=== PATIENT | female | born 1955 | race African-American/Black ===

== ENCOUNTER 2020-11-16 05:32 | Inpatient (IN) ==
[2020-11-10 11:20] LABS: Basophils % 0.5 % (0.0-0.8); Eosinophils % 0.5 % (0.00-10.9); Hematocrit 41.6 VOL% (35.7-47.0); Hemoglobin 13.7 GM/DL (12.0-16.0); Immature Granulocytes % 0.6 %; Immature Granulocytes Absolute 0.05 #; Lymphocytes # 2.9 10*3/uL (1.4-4.0); Lymphocytes % 35.4 % (21.3-54.2); Mean Corpuscular HGB Conc 32.9 GM/DL (32-36); Mean Corpuscular Volume 82.5 FL (87-102); Mean Platelet Volume 11.7 FL (9.6-12.0); Monocytes % 5.8 % (1.7-12.7); Neutrophils % 57.2 % (38.7-73.9); Platelet Count 209 T/CUMM (130-400); Red Blood Count 5.04 MC/CUMM (3.8-5.5); Red Cell Distribution Width 16.3 % (9.3-17.3); White Blood Count 8.1 T/CUMM (4-12)
[2020-11-10 11:23] LABS: Bilirubin,Urine Negative (Negative); Blood, Urine Small mg/dL (Negative); Glucose,Urine (UA) Negative (Negative); Ketones,Urine Negative (Negative); Mucus,Urine Occasional /LPF (Occasional); Nitrite,Urine Negative (Negative); Protein,Urine Negative; RBC,Urine 1 /HPF (0-4); Squamous Epithelial Cell,Urine Occasional /HPF (0-10); Urine Appearance CLEAR (Clear); Urine Color Yellow (Yellow); Urine Specific Gravity 1.013 (1.001-1.035); Urine Urobilinogen < 2.0 EU/DL (0.2-1.0); WBC,Urine 1 /HPF (0-6)
[2020-11-10 11:30] LABS: PT Patient Result 10.9 SECS (9.8-11.9); Partial Thromboplastin Time 30.2 SECS (23.9-33.8)
[2020-11-10 11:39] LABS: Albumin 3.6 G/DL (3.4-5.0); Bilirubin,Total 0.5 MG/DL (0.2-1.0); Calcium 9.4 MG/DL (8.5-10.1); Osmolality,Calculated 275.7 MOS/KG (273-304); Total Protein 7.9 G/DL (6.4-8.3)
[2020-11-10 12:21] LABS: Band Neutrophils 6 % (0-10); Lymphocytes 32 % (20-55); Platelet Estimate Normal; Segmented Neutrophils 58 % (50-85); Total Cells Counted 100
[2020-11-10 12:22] LABS: Anisocytosis Slight
[2020-11-16] MEDS ORDERED: ceFAZolin 1,000 MG in SYRINGE 1 EACH IV ONE (06:00)
[2020-11-16] MEDS ORDERED: VANCOMYCIN INJ 1,000 MG in SODIUM CHLORIDE 0.9% 250 ML IV ONE (06:00)
[2020-11-16] MEDS ORDERED: fentaNYL 100 MCG/2 ML VIAL ONE (06:26)
[2020-11-16] MEDS ORDERED: MIDAZOLAM 2 MG/2 ML VIAL ONE (06:27)
[2020-11-16] MEDS ORDERED: BUPIVACAINE MPF 0.25% 30 ML VIAL ONE (06:30)
[2020-11-16] MEDS ORDERED: LIDOCAINE 1% 5 ML VIAL ONE (06:31)
[2020-11-16] MEDS ORDERED: BACITRACIN OINT 0.9 GM PACK TOP ONE (06:35)
[2020-11-16] MEDS ORDERED: GABAPENTIN 400 MG CAPSULE PO ONE (06:39)
[2020-11-16] MEDS ORDERED: ACETAMINOPHEN 500 MG TABLET PO ONE (06:39)
[2020-11-16] MEDS ORDERED: FAMOTIDINE 20 MG TABLET PO ONE (06:39)
[2020-11-16] MEDS ORDERED: LIDOCAINE 2% 5 ML VIAL ONE (06:49)
[2020-11-16] MEDS ORDERED: propofoL 200 MG/20 ML VIAL IV ONE ×2 (06:49→07:21)
[2020-11-16] MEDS ORDERED: LACTATED RINGERS 1,000 ML IV SCH (07:00)
[2020-11-16] MEDS ORDERED: BUPIVACAINE SPINAL 0.75% 2 ML AMP SPINAL ONE (07:06)
[2020-11-16] MEDS ORDERED: traZODone 50 MG TABLET PO PRN (07:26)
[2020-11-16] MEDS ORDERED: NITROGLYCERIN SL 0.4 MG TABLET SL PRN (07:26)
[2020-11-16] MEDS ORDERED: GABAPENTIN 300 MG CAPSULE PO PRN (07:26)
[2020-11-16] MEDS ORDERED: ONDANSETRON 4 MG/2 ML VIAL IV PRN (07:35)
[2020-11-16] MEDS ORDERED: MORPHINE 4 MG/1 ML VIAL IV PRN (07:35)
[2020-11-16] MEDS ORDERED: MAGNESIUM HYDROXIDE SUSP 30 ML UDCUP PO PRN (07:35)
[2020-11-16] MEDS ORDERED: SODIUM CHLORIDE 0.9% 250 ML IV ONE (07:44)
[2020-11-16] MEDS ORDERED: KETAMINE 500 MG/10 ML VIAL ONE (07:48)
[2020-11-16] MEDS ORDERED: SODIUM CHLORIDE 0.9% 100 ML IV ONE (07:54)
[2020-11-16] MEDS ORDERED: LACTATED RINGERS 1,000 ML IV ONE (07:54)
[2020-11-16] MEDS ORDERED: TRANEXAMIC ACID 1,000 MG/10 ML VIAL ONE (07:54)
[2020-11-16] MEDS ORDERED: PHENYLEPHRINE 1 MG/10 ML SYRINGE IV ONE (08:07)
[2020-11-16] MEDS ORDERED: ePHEDrine 50 MG/ML VIAL ONE (08:39)
[2020-11-16 09:09] LABS: Bacteria,Urine Occasional /HPF (Few); Bilirubin,Urine Negative (Negative); Blood, Urine Moderate mg/dL (Negative); Glucose,Urine (UA) Negative (Negative); Ketones,Urine Negative (Negative); Mucus,Urine Occasional /LPF (Occasional); Nitrite,Urine Negative (Negative); Protein,Urine Negative; RBC,Urine 1 /HPF (0-4); Squamous Epithelial Cell,Urine Occasional /HPF (0-10); Urine Appearance CLEAR (Clear); Urine Color Yellow (Yellow); Urine Specific Gravity 1.015 (1.001-1.035); Urine Urobilinogen < 2.0 EU/DL (0.2-1.0); WBC,Urine <1 /HPF (0-6)
[2020-11-16] MEDS: LACTATED RINGERS 1,000 ML IV SCH ×4 (09:45→23:30)
[2020-11-16] MEDS: KETOROLAC 30 MG/1 ML VIAL IV SCH ×3 (10:57→23:28)
[2020-11-16] MEDS: ceFAZolin 2,000 MG in PREMIX 1 EACH IV SCH ×2 (10:58→20:51)
[2020-11-16] MEDS: MORPHINE 4 MG/1 ML VIAL IV PRN ×2 (17:30→21:59)
[2020-11-16] MEDS: SERTRALINE 50 MG TABLET PO SCH (20:36)
[2020-11-16] MEDS: PANTOPRAZOLE 40 MG TABLET PO SCH (20:36)
[2020-11-16] MEDS: DOCUSATE SODIUM 100 MG CAPSULE PO SCH (20:36)
[2020-11-16] MEDS: APIXABAN 2.5 MG TABLET PO SCH (20:37)
[2020-11-17 05:31] LABS: Basophils % 0.3 % (0.0-0.8); Eosinophils % 0.6 % (0.00-10.9); Hematocrit 28.7 VOL% (35.7-47.0); Hemoglobin 9.4 GM/DL (12.0-16.0); Immature Granulocytes % 0.7 %; Immature Granulocytes Absolute 0.05 #; Lymphocytes # 1.7 10*3/uL (1.4-4.0); Mean Corpuscular HGB Conc 32.8 GM/DL (32-36); Mean Corpuscular Volume 82.5 FL (87-102); Mean Platelet Volume 11.1 FL (9.6-12.0); Monocytes % 10.1 % (1.7-12.7); Neutrophils % 65.3 % (38.7-73.9); Platelet Count 166 T/CUMM (130-400); Red Blood Count 3.48 MC/CUMM (3.8-5.5); Red Cell Distribution Width 16.4 % (9.3-17.3); White Blood Count 7.3 T/CUMM (4-12)
[2020-11-17] MEDS ORDERED: KETOROLAC 30 MG/1 ML VIAL IV SCH (06:00)
[2020-11-17 06:05] LABS: Calcium 7.9 MG/DL (8.5-10.1); Osmolality,Calculated 283.1 MOS/KG (273-304)
[2020-11-17] MEDS: KETOROLAC 30 MG/1 ML VIAL IV SCH (06:16)
[2020-11-17] MEDS: ATORVASTATIN 40 MG TABLET PO SCH (08:38)
[2020-11-17] MEDS: CHOLECALCIFEROL 1,000 UNIT TABLET PO SCH (08:38)
[2020-11-17] MEDS: APIXABAN 2.5 MG TABLET PO SCH ×2 (08:39→21:37)
[2020-11-17] MEDS: DOCUSATE SODIUM 100 MG CAPSULE PO SCH ×2 (08:39→21:37)
[2020-11-17] MEDS: ASPIRIN EC 81 MG TABLET PO SCH (08:39)
[2020-11-17] MEDS: SERTRALINE 50 MG TABLET PO SCH (21:37)
[2020-11-17] MEDS: MORPHINE 4 MG/1 ML VIAL IV PRN (21:38)
[2020-11-17] MEDS: PANTOPRAZOLE 40 MG TABLET PO SCH (21:40)
[2020-11-18 05:20] LABS: Basophils % 0.3 % (0.0-0.8); Eosinophils % 0.5 % (0.00-10.9); Hematocrit 29.1 VOL% (35.7-47.0); Hemoglobin 9.6 GM/DL (12.0-16.0); Immature Granulocytes % 0.8 %; Immature Granulocytes Absolute 0.06 #; Lymphocytes # 1.5 10*3/uL (1.4-4.0); Lymphocytes % 18.4 % (21.3-54.2); Mean Corpuscular Volume 82.7 FL (87-102); Mean Platelet Volume 11.2 FL (9.6-12.0); Monocytes % 7.3 % (1.7-12.7); Neutrophils % 72.7 % (38.7-73.9); Platelet Count 170 T/CUMM (130-400); Red Blood Count 3.52 MC/CUMM (3.8-5.5); Red Cell Distribution Width 16.4 % (9.3-17.3)
[2020-11-18 05:41] LABS: Hypochromasia 1+; Microcytosis 1+; Platelet Estimate Adequate
[2020-11-18 07:24] VITALS: BP 121/60
[2020-11-18] MEDS: DOCUSATE SODIUM 100 MG CAPSULE PO SCH (09:22)
[2020-11-18] MEDS: ASPIRIN EC 81 MG TABLET PO SCH (09:22)
[2020-11-18] MEDS: ATORVASTATIN 40 MG TABLET PO SCH (09:22)
[2020-11-18] MEDS: CHOLECALCIFEROL 1,000 UNIT TABLET PO SCH (09:22)
[2020-11-18] MEDS: APIXABAN 2.5 MG TABLET PO SCH (09:22)
== END 2020-11-18 11:44 | disposition home health service (06) | DRG 470 ==
LOC: N.OR 05:32 → N.SDSINP 05:39 → EDSTATUS 09:30 → N.3E 09:42
PROVIDERS: ADMIT Orthopaedic Surgery; ATTEND Orthopaedic Surgery